=== PATIENT | female | born 1950 | race Caucasian/White ===

== ENCOUNTER 2019-06-02 12:28 | Outpatient (CLI) | payer MEDICARE, SELFPAY ==
[2019-06-02 13:48] LABS: Basophils # 0.1 10^3/uL (0.0-0.1); Basophils % 0.8 %; Eosinophils # 0.2 10^3/uL (0.0-0.8); Eosinophils % 2.6 %; Hematocrit 42.9 % (37.0-47.0); Hemoglobin 13.8 g/dL (11.5-15.3); Lymphocytes # 1.1 10^3/uL (0.8-4.8); Lymphocytes % 17.1 %; Mean Corpuscular HGB Conc 32.2 g/dL (30.0-36.0); Mean Corpuscular Hemoglobin 28.9 pg (28.0-34.0); Mean Corpuscular Volume 89.9 fL (81-99); Mean Platelet Volume 11.1 fL (7.4-10.4); Monocytes # 0.6 10^3/uL (0.2-0.9); Monocytes % 8.4 %; Neutrophils # 4.7 10^3/uL (1.8-7.7); Neutrophils % 70.6 %; Nucleated Red Blood Cells % 0 %; Platelet Count 345 10^3/cmm (130-400); Red Blood Count 4.77 10^6/uL (4.1-5.3); Red Cell Distribution Width 13.8 % (12.1-15.1); White Blood Count 6.7 10^3/uL (4.0-10.0)
[2019-06-02 14:05] LABS: Alanine Aminotransferase 18 U/L (0-33); Albumin Level 3.8 g/dL (3.5-5.2); Alkaline Phosphatase 98 IU/L (35-105); Anion Gap 14.7 (5-19); Aspartate Amino Transferase 22 U/L (0-32); Blood Urea Nitrogen 14 mg/dL (8-23); Calcium 9.7 mg/Dl (8.8-10.2); Carbon Dioxide 25 mmol/L (22-29); Chloride 101 mmol/L (98-107); Globulin 3.3 g/dL (1.3-4.6); Glomerular Filtration Rate 82.7 mL/min (90-130); Glucose 111 mg/dL (74-106); Potassium 3.7 mmol/L (3.5-5.1); Sodium 137 mmol/L (136-145); Total Bilirubin 0.3 mg/dL (0.15-1.2); Total Protein 7.1 g/dL (6.6-8.7)
[2019-06-02] MEDS: denosumab 60 mg SDV SUBCUT (14:30)
--- NOTE | 2019-06-06 21:01 | ONC FU_ITS ---
Dr. Caro Patient Follow-Up Note Patient: Jazmin Epperson Unit #: [id number]: 1950 Dicatated By: Itz Caro M.D.Date of Visit:Jun 02, 2019 Onc Med Follow-up/Prog Note Chief Complaint: Breast cancer. History of Present Illness: This is a 68 year-old woman with grade I infiltrating ductal carcinoma of the right breast, stage IA (T1c, N0, M0), ER/WI positive and HER-2/aranza negative. She had palpated a right breast nodule about 4 years ago, with mammogram at that time being benign. Follow up mammogram and ultrasound on 10/19/2014 showed spiculated 1.6 cm mass in the right breast, located at 10:00 position approximately 4 cm from the nipple on the ultrasound. There was also a subcentimeter mass in the left breast at 12:00 position suggestive of complex cyst on ultrasound. Ultrasound-guided biopsy on 11/05/2014 of the right breast lesion was nondiagnostic. On 11/23/2014 she was taken to OR for right breast lumpectomy and right axillary sentinel lymph node biopsy by Dr. Talbert. Her surgical pathology showed a 1.7 cm infiltrating ductal carcinoma, grade 1, negative final margins. Lymphovascular invasion was identified. One sentinel lymph node biopsy was negative for metastatic disease. Prognostic profile was in ER 92%, WI 93%, HER-2 by FISH 1.1, by IHC 1+. The patient was first seen by Dr. Mar on 12/07/2014. Oncotype DX score returned at 7, corresponding to 5% risk of distant recurrence in the next 10 years after completion of adjuvant hormonal treatment. She completed adjuvant radiation to the right breast on 02/19/2015 to a total dose of 5856 cGy. She began adjuvant hormonal therapy with anastrozole in November 2014. DEXA scan on 12/11/2014 showed osteoporosis, T score -2.5 in proximal femur. She also was found to have Vitamin D insufficiency. INTERIM HISTORY: On 11/03/2015 she sustained a right wrist fracture after falling while attempting to get out of the bathtub. She did not require surgery. I had seen in her for a followup vist in December 2015. She was otherwise not having any joint or bone pain, but she was complaining of significant fatigue. She had stopped taking Fosamax because she was having difficulty swallowing. At that time I did have her start Prolia for the osteoporosis, and she continued adjuvant hormonal therapy with anastrozole. Subsequent to that visit she developed a skin eruption on the lower extremities. A skin biopsy in May 2016 showed lichenoid tissue reaction with eosinophils, consistent with lichenoid drug eruption. Ultimately it was felt to be due to the anastrozole, and it did improve when she stopped the medication. She then started further adjuvant hormonal therapy with exemestane 25 mg daily in October 2016. She also continued Prolia injections for osteoporosis. Repeat DEXA scan on 11/26/2017 still showed evidence of osteoporosis with T score -1.2 in the lumbar spine, -2.5 in the left hip, and -2.1 in the right hip. I had seen her for a follow-up visit on 05/20/2018. She continued exemestane 25 mg daily, and she continued Prolia for bone health. She is seen for a follow-up visit. She has not been feeling very good generally. She says her energy is not real good, but she is still doing light work. Her ECOG score is 1. Her appetite also has not been good, and her weight is down about 10 pounds. She has not had fever, night sweats, or hot flashes. She says she is just getting over a cold. She has mild exertional dyspnea. She has had cough, but it is getting better. She does not complain of chest pain. She has a little bit of acid reflux. She has no other GI or complaints. She has had some pain in her left index finger. She has no other joint or bone pain. She has no focal neurologic symptoms. Medications: Cholecalciferol 1 Tablet (of 1000 Units) Oral daily, Exemestane 1 (25 mg) Tablet Oral daily, Synthroid 1 (50 mcg) Tablet Oral daily, Triamcinolone Acetonide Cream Topical PRN Allergies: Codeine Sulfate, doxycycline , eggs, and Penicillin. Review of Systems: Constitutional - Her energy is low. She is able to do light work at home. Her appetite is low and her weight is down almost 10 pounds. No fever, chills, hot flashes, or night sweats. ECOG score is 1, ENMT - She is getting over a cold and sore throat. No mouth sores. No sore throat or difficulty swallowing, Hematologic/Lymphatic - No abnormal bruising or bleeding, Respiratory - No shortness of breath. No cough. No pleuritic pain or hemoptysis, Cardiovascular - No angina pain. No palpitations, Gastrointestinal - No nausea or vomiting. She has occasional heartburn. No diarrhea or constipation. No blood in the stool or black stools, Genitourinary (F) - No dysuria or hematuria. No urinary frequency. No urgency or incontinence, Musculoskeletal - She has pain in her left index finger, Integumentary - No skin complications, Neurologic - She has occasional headaches. No dizziness. No numbness/paresthesias or other focal neurologic symptoms, Psychiatric - No anxiety or depression. No insomnia. Vital Signs: Performed on Jun 02, 2019 13:24 Height - 63.50 in Weight - 150.4 lbs (LOW) BSA - 1.72 sq.m BMI - 26.22 Temperature - 98.4 F Pulse - 82 /min Respiration - 22 /min BP - 148/84 mm(hg) (HIGH) O2 Sat - 97 % Pain - 0 Physical Examination: Constitutional - She looks good generally, Eyes - Sclerae nonicteric. Conjunctivae clear, ENMT - There are no lesions noted in the oral cavity, Hematologic/Lymphatic - No cervical or clavicular adenopathy, Respiratory - Lungs are clear with good air movement bilaterally, Cardiovascular - Heart rhythm is regular. There is no murmur, gallop, or rub noted, Breasts - There are no breast masses noted. There is no axillary adenopathy, Abdomen - Soft. Liver and spleen are not enlarged. There is no abdominal mass or ascites noted and there is no inguinal adenopathy, Extremities - No edema, Neurologic - No focal neurologic deficits noted. Lab/Imaging: Test performed on Jun 02, 2019 12:45 Glucose 111 mg/dL BUN 14 mg/dL Creatinine 0.7 mg/dL Cr Clearance (Est) 80.54 mL/min Sodium 137 mmol/L Potassium 3.7 mmol/L Chloride 101 mmol/L CO2 25 mmol/L Calcium 9.7 mg/dL Protein, Total 7.1 g/dL Albumin 3.8 g/dL Globulin 3.3 g/dL Bilirubin, Total 0.3 mg/dL Alkaline Phosphatase 98 IU/L AST (SGOT) 22 IU/L ALT (SGPT) 18 IU/L WBC 6.7 10^9/L RBC 4.77 10^12/L HGB 13.8 g/dL HCT 42.9 % MCV 89.9 fl MCH 28.9 pg MCHC 32.2 g/dL RDW 13.8 % Platelet Count 345 10^9/L MPV 11.1 fL Neutrophils (Gran) 4.7 10^9/L Lymphocytes 1.1 10^9/L Monocytes 0.6 10^9/L Eosinophils 0.2 10^9/L Basophils 0.1 10^9/L Manual Lymphocytes 17.1 % Manual Monocytes 8.4 % Manual Eosinophils 2.6 % Manual Basophils 0.8 % NRBCs 0.0 /100 WBC Impression: 1. Patient with grade I infiltrating ductal carcinoma of the right breast, stage IA (T1c, N0, M0), ER/WI positive, HER-2 negative. She was low risk by Oncotype DX, recurrence score 7. As such, adjuvant chemotherapy was not recommended. 2. She underwent right breast lumpectomy and sentinel lymph node biopsy on 11/23/2014. She completed adjuvant radiation to the right breast on 02/19/2015 to a total dose of 5856 cGy. 3. She started adjuvant hormonal therapy with anastrozole in November 2014. 4. She had evidence of osteoporosis on a baseline bone density study, T score -2.5 in the proximal femur. She also had evidence of vitamin D deficiency. In April 2016 she began treatment with Prolia for the osteoporosis. She had subsequently developed a skin eruption which was thought to most likely be due to the anastrozole, and she did then stop treatment. Her skin eruption did show gradual improvement. In October 2016 she began further adjuvant hormonal therapy with exemestane 25 mg daily. She has continued Prolia injections for the osteoporosis. Her repeat DEXA scan on 11/26/2017 still showed evidence of osteoporosis with T score -2.5 in the left hip and -2.1 in the right hip. During subsequent follow-up she continued to have a few skin lesions on her legs. I had suspected an inflammatory rather than an allergic process. She also had some fatigue. The skin eruption eventually did resolve, but she has continued to have fatigue, and she also now has had some weight loss. It is uncertain to what extent the symptoms may be related to the exemestane. There has been no evidence, though, of recurrence of the breast cancer. Plan: She continues treatment with exemestane 25 mg daily for one more year, which will complete a total of 5 years of adjuvant hormonal therapy. She will be given Prolia 60 mg by subcutaneous injection for the osteoporosis. She will continue vitamin D supplement daily. She will be scheduled for a follow-up visit in 6 months. Signed By: Itz Caro M.D. <<Signature on File>>
== END 2019-06-02 12:29 | disposition home or self-care (01) ==
PROVIDERS: Family Provider Family Medicine; Visit Provider Internal Medicine Medical Oncology
DX: M81.0 Age-related osteoporosis without current pathological fracture (principal); C50.111 Malignant neoplasm of central portion of right female breast; E55.9 Vitamin D deficiency, unspecified; Z79.811 Long term (current) use of aromatase inhibitors; Z92.3 Personal history of irradiation
CPT/HCPCS: 80053; 85025; 96372; 99214; J0897

== ENCOUNTER 2019-06-10 10:10 | Outpatient (CLI) | payer MEDICARE, SELFPAY ==
--- NOTE | 2019-06-10 10:33 | MM_ITS ---
WS: [id number] BILATERAL DIGITAL DIAGNOSTIC MAMMOGRAM MAMMOGRAPHY WITH CAD CLINICAL INFORMATION: HX OF BREAST CA HISTORY: COMPARISON: None. TECHNIQUE: Bilateral CC, MLO, and ML views. FINDINGS: Scattered fibroglandular densities bilaterally. Lucent centered calcifications are stable. Right uppe r outer quadrant parenchymal scarring from prior surgery. No suspicious focal mass, asymmetry, calcifications, or architectural distortion. No evidence of jackie gnancy. MM/[place] [id number] IMPRESSION: BI-RADS: 2-Benign FOLLOW UP: 1 Year Follow-up Recommend return to annual diagnostic mammography.
== END 2019-06-10 10:11 | disposition home or self-care (01) ==
LOC: ONCMED 10:30
PROVIDERS: Family Provider Family Medicine; Visit Provider Internal Medicine Medical Oncology
DX: Z85.3 Personal history of malignant neoplasm of breast (principal)
CPT/HCPCS: 77066

== ENCOUNTER 2019-12-01 11:20 | Outpatient (CLI) | payer MEDICARE, SELFPAY ==
[2019-12-01 11:47] LABS: Basophils % 0.5 %; Eosinophils # 0.2 10^3/uL (0.0-0.8); Eosinophils % 3.6 %; Hematocrit 44.1 % (37.0-47.0); Hemoglobin 14.1 g/dL (11.5-15.3); Lymphocytes # 1.2 10^3/uL (0.8-4.8); Lymphocytes % 18.2 %; Mean Corpuscular Hemoglobin 29.3 pg (28.0-34.0); Mean Corpuscular Volume 91.5 fL (81-99); Mean Platelet Volume 10.7 fL (7.4-10.4); Monocytes # 0.6 10^3/uL (0.2-0.9); Monocytes % 8.8 %; Neutrophils # 4.34 10^3/uL (1.8-7.7); Neutrophils % 68.3 %; Nucleated Red Blood Cells % 0 %; Platelet Count 285 10^3/cmm (130-400); Red Blood Count 4.82 10^6/uL (4.1-5.3); Red Cell Distribution Width 14.6 % (12.1-15.1); White Blood Count 6.4 10^3/uL (4.0-10.0)
[2019-12-01 12:06] LABS: Alanine Aminotransferase 13 U/L (0-33); Albumin Level 4.2 g/dL (3.5-5.2); Alkaline Phosphatase 83 IU/L (35-105); Anion Gap 15.1 (5-19); Aspartate Amino Transferase 27 U/L (0-32); Blood Urea Nitrogen 15 mg/dL (8-23); Calcium 8.8 mg/dL (8.5-10.5); Carbon Dioxide 23 mmol/L (22-29); Chloride 105 mmol/L (98-107); Globulin 2.9 g/dL (1.3-4.6); Glucose 107 mg/dL (65-115); Osmolality Calculated 285 mOsm/kg (285-295); Potassium 4.1 mmol/L (3.5-5.1); Sodium 139 mmol/L (136-145); Total Bilirubin 0.5 mg/dL (0.15-1.2); Total Protein 7.1 g/dL (6.6-8.7)
[2019-12-01] MEDS: denosumab 60 mg SDV SUBCUT (13:44)
--- NOTE | 2019-12-01 19:36 | ONC FU_ITS ---
Dr. Caro Patient Follow-Up Note Patient: Jazmin Epperson Unit #: [id number]: 1950 Dicatated By: Itz Caro M.D.Date of Visit:Dec 01, 2019 Onc Med Follow-up/Prog Note Chief Complaint: Breast cancer. History of Present Illness: This is a 69 year-old woman with grade I infiltrating ductal carcinoma of the right breast, stage IA (T1c, N0, M0), ER/MT positive and HER-2/aranza negative. She had palpated a right breast nodule about 4 years ago, with mammogram at that time being benign. Follow up mammogram and ultrasound on 10/19/2014 showed spiculated 1.6 cm mass in the right breast, located at 10:00 position approximately 4 cm from the nipple on the ultrasound. There was also a subcentimeter mass in the left breast at 12:00 position suggestive of complex cyst on ultrasound. Ultrasound-guided biopsy on 11/05/2014 of the right breast lesion was nondiagnostic. On 11/23/2014 she was taken to OR for right breast lumpectomy and right axillary sentinel lymph node biopsy by Dr. Talbert. Her surgical pathology showed a 1.7 cm infiltrating ductal carcinoma, grade 1, negative final margins. Lymphovascular invasion was identified. One sentinel lymph node biopsy was negative for metastatic disease. Prognostic profile was in ER 92%, MT 93%, HER-2 by FISH 1.1, by IHC 1+. The patient was first seen by Dr. Mar on 12/07/2014. Oncotype DX score returned at 7, corresponding to 5% risk of distant recurrence in the next 10 years after completion of adjuvant hormonal treatment. She completed adjuvant radiation to the right breast on 02/19/2015 to a total dose of 5856 cGy. She began adjuvant hormonal therapy with anastrozole in November 2014. DEXA scan on 12/11/2014 showed osteoporosis, T score -2.5 in proximal femur. She also was found to have Vitamin D insufficiency. INTERIM HISTORY: On 11/03/2015 she sustained a right wrist fracture after falling while attempting to get out of the bathtub. She did not require surgery. I had seen in her for a followup vist in December 2015. She was otherwise not having any joint or bone pain, but she was complaining of significant fatigue. She had stopped taking Fosamax because she was having difficulty swallowing. At that time I did have her start Prolia for the osteoporosis, and she continued adjuvant hormonal therapy with anastrozole. Subsequent to that visit she developed a skin eruption on the lower extremities. A skin biopsy in May 2016 showed lichenoid tissue reaction with eosinophils, consistent with lichenoid drug eruption. Ultimately it was felt to be due to the anastrozole, and it did improve when she stopped the medication. She then started further adjuvant hormonal therapy with exemestane 25 mg daily in October 2016. She also continued Prolia injections for osteoporosis. Repeat DEXA scan on 11/26/2017 still showed evidence of osteoporosis with T score -1.2 in the lumbar spine, -2.5 in the left hip, and -2.1 in the right hip. I had seen her for a follow-up visit on 05/20/2018. She continued exemestane 25 mg daily, and she continued Prolia for bone health. She is seen for a follow-up visit. She has been feeling good generally. She says her energy could be better, but she has normal activity. ECOG score is 0. Her appetite is good. She does not have fever or night sweats. She has occasional hot flashes. She has no shortness of breath, cough, or chest pain. She has no GI/ complaints other than a little bit of acid reflux. She has pain for a few days in the groin area on both sides after her Prolia injections. She has no other joint or bone pain. She reports having occasional headache. She has no focal neurologic symptoms. Medications: Cholecalciferol 1 Tablet (of 1000 Units) Oral daily, Exemestane 1 (25 mg) Tablet Oral daily, Synthroid 1 (50 mcg) Tablet Oral daily, Triamcinolone Acetonide Cream Topical PRN Allergies: Codeine Sulfate, doxycycline , eggs, and Penicillin. Review of Systems: Constitutional - She is feeling good. Her energy is good and she has normal activity without restrictions. Her appetite is good and her weight is down about 9 pounds from last years visit. No fever, night sweats, or hot flashes. ECOG score is 0, ENMT - No sinus congestion/drainage. No mouth sores. No sore throat or difficulty swallowing, Hematologic/Lymphatic - No abnormal bruising or bleeding, Respiratory - No shortness of breath. No cough. No pleuritic pain or hemoptysis, Cardiovascular - No angina pain. No palpitations, Gastrointestinal - No nausea or vomiting. She has occasional heartburn. No diarrhea or constipation. No blood in the stool or black stools, Genitourinary (F) - No dysuria or hematuria. No urinary frequency. No urgency or incontinence, Musculoskeletal - No joint or bone pain, Integumentary - No skin complications, Neurologic - She has occasional headaches. No dizziness. No numbness or tingling. No other focal neurologic symptoms, Psychiatric - No anxiety or depression. No insomnia. Vital Signs: Blood pressure 127/72, pulse 73, respirations 18, temp 97.9 degrees, oxygen saturation 100%. Her weight is 148 pounds. Physical Examination: Constitutional - She looks good generally, Eyes - Sclerae nonicteric. Conjunctivae clear, ENMT - No lesions noted in the oral cavity, Hematologic/Lymphatic - No cervical, clavicular, or axillary adenopathy, Respiratory - Lungs are clear with good air movement bilaterally, Cardiovascular - Heart rhythm is regular. There is no murmur, gallop, or rub noted, Abdomen - Soft. Liver and spleen are not enlarged. There is no abdominal mass or ascites noted and there is no inguinal adenopathy, Extremities - No edema, Neurologic - No focal neurologic deficits noted. Lab/Imaging: Test performed on Dec 01, 2019 11:27 Sodium 139 mmol/L Potassium 4.1 mmol/L Chloride 105 mmol/L CO2 23 mmol/L Anion Gap 15.1 BUN 15 mg/dL Creatinine 0.8 mg/dL Cr Clearance (Est) 69.4700 mL/min Glucose 107 mg/dL Calcium 8.8 mg/dL Protein, Total 7.1 g/dL Albumin 4.2 g/dL Globulin 2.9 g/dL Bilirubin, Total 0.5 mg/dL ALT (SGPT) 13 U/L AST (SGOT) 27 U/L Alkaline Phosphatase 83 IU/L WBC 6.4 10 3/uL RBC 4.82 10 6/uL HGB 14.1 g/dL HCT 44.1 % MCV 91.5 fL MCH 29.3 pg MCHC 32.0 g/dL RDW 14.6 % Platelet Count 285 10 3/cmm MPV 10.7 fL Neutrophils 4.34 10 3/uL Lymphocytes 1.2 10 3/uL Monocytes 0.6 10 3/uL Eosinophils 0.2 10 3/uL Basophils 0.0 10 3/uL Neutrophil % 68.3 % Lymphocyte % 18.2 % Monocyte % 8.8 % Eosinophil % 3.6 % Basophils % 0.5 % NRBC % 0 % Impression: 1. Patient with grade I infiltrating ductal carcinoma of the right breast, stage IA (T1c, N0, M0), ER/MT positive, HER-2 negative. She was low risk by Oncotype DX, recurrence score 7. As such, adjuvant chemotherapy was not recommended. 2. She underwent right breast lumpectomy and sentinel lymph node biopsy on 11/23/2014. She completed adjuvant radiation to the right breast on 02/19/2015 to a total dose of 5856 cGy. 3. She started adjuvant hormonal therapy with anastrozole in November 2014. 4. She had evidence of osteoporosis on a baseline bone density study, T score -2.5 in the proximal femur. She also had evidence of vitamin D deficiency. In April 2016 she began treatment with Prolia for the osteoporosis. She had subsequently developed a skin eruption which was thought to most likely be due to the anastrozole, and she did then stop treatment. Her skin eruption did show gradual improvement. In October 2016 she began further adjuvant hormonal therapy with exemestane 25 mg daily. She has continued Prolia injections for the osteoporosis. Her repeat DEXA scan on 11/26/2017 still showed evidence of osteoporosis with T score -2.5 in the left hip and -2.1 in the right hip. During subsequent follow-up she continued to have a few skin lesions on her legs. I had suspected an inflammatory rather than an allergic process. She also had some fatigue. The skin eruption eventually did resolve, but she continued to have fatigue, and she then had weight loss. At this point her clinical status appears stable, but it remains uncertain as to what extent her symptoms may be related to the exemestane. There has been no evidence, though, of recurrence of the breast cancer. Plan: She continues treatment with exemestane 25 mg daily for another 6 months, at which time she will have completed a total of 5 years of adjuvant hormonal therapy. She will be given Prolia 60 mg by subcutaneous injection for the osteoporosis. She will continue vitamin D supplement daily. She will be scheduled for a follow-up visit in 6 months. She will have a repeat DEXA scan with that visit. Signed By: Itz Caro M.D. <<Signature on File>>
== END 2019-12-01 11:21 | disposition home or self-care (01) ==
LOC: ONCMED 11:22
PROVIDERS: Visit Provider Internal Medicine Medical Oncology
DX: C50.411 Malignant neoplasm of upper-outer quadrant of right female breast (principal); M81.0 Age-related osteoporosis without current pathological fracture; R53.83 Other fatigue; R63.4 Abnormal weight loss; Z79.811 Long term (current) use of aromatase inhibitors; Z17.0 Estrogen receptor positive status [ER+]; Z92.3 Personal history of irradiation
CPT/HCPCS: 80053; 85025; 96372; 99214; J0897

== ENCOUNTER 2020-01-09 10:51 | Emergency (ER) | payer MEDICARE, SELFPAY ==
[2020-01-09] VITALS (11 sets, daily range): BP systolic 104–131; BP diastolic 71–94; PULSE 97–108; RESP 18–24; O2SAT 94–98
--- NOTE | 2020-01-09 10:53 | CT_ITS ---
WS: [id number] CT ABDOMEN PELVIS TECHNIQUE: Contrast-enhanced CT of the abdomen and pelvis with coronal and sagittal reformatted image s. CLINICAL INFORMATION: abd pain COMPARISON: None. DLP: 926.[address] scans at [facility] use at least one of these dose optimization techniques: automat ed exposure control; mA and/or kV adjustment per patient size (includes targeted exams where dose is matched to clinical indication); or iterative reconstruction. FINDINGS: Diffuse fatty infiltration the liver. Normal portal vein and proximal splenic vein. Lobulated spleen similar to prior radiation therapy planning CT 24,015. Large amount of acute surrounding hematoma ab out the spleen with medial displacement. Left kidney is displaced inferiorly. Blood products extend a long the greater curvature stomach and proximal duodenum. Blood products likely due to recent fall. N o displaced rib fractures. Suggestion of minimal irregularity of the adjacent 10th rib suspicious for nondisplaced fracture. No underlying emphysema. Left lung is well aerated. Moderate amount of fluid in the pelvis is mainly low-attenuation likely due to fluid rather than acut e blood products. Tiny amount of fluid about the right hepatic lobe. Additional small amount of perih epatic fluid along the hepatic flexure. Tiny amount of pneumatosis or free air adjacent to the right hepatic flexure likely due to recent biopsy. Otherwise no free intraperitoneal air. Small amount of f luid in the right pericolic gutter. Lung bases are well aerated. Normal GE junction. Adrenal glands are normal. Normal renal parenchymal enhancement. A few small renal cysts. No hydronephrosis. Fatty atrophy of the pancreas. CT/CT abdomen pelvis w con* [id number] IMPRESSION: 1. Increased attenuation blood products about the spleen consistent with acute hematoma. Associated displacement of the spleen with chronic splenic deformity described above. Suggestion of slight irregularity at the adjacent 10th rib ma y be due to a tiny nondisplaced fracture from recent fall. No displaced fractur es or subcutaneous air. 2. Air distended loops of colon at the hepatic flexure with a small amount of fluid and a trace amount of pneumatosis with a few small locules of bowel wall or adjacent intraperitoneal air. This is likely at the biopsy site. Otherwise n o evidence of free air. 3. Small amount of low-attenuation fluid in the hepatic flexure, right pericol ic gutte, and moderate ascites in the pelvis which appears low attenuation. 4. Left kidney is inferiorly displaced by the splenic hematoma. 5. Lung bases are well aerated. 6. Normal caliber abdominal aorta. Notified Henrique Case DO at 01/09/2020 12:04 PM.
--- NOTE | 2020-01-09 10:53 | ECG_ITS ---
[facility] Test Date: 2020-01-09 Pat Name: Jazmin Epperson Department: Room: Gender: Female Wellness [employer]: : 1950 Requested By: Henrique Fowler Order Number: [id number] Magaly MD: Shu Rocha M.D. Measurements Intervals [place] Rate: 97 P: 37 TN: 160 QRS: -6 QRSD: 77 T: 44 QT: 352 QTc: 448 Interpretive Statements SINUS RHYTHM POSSIBLE RIGHT VENTRICULAR CONDUCTION DELAY [RSR (QR) IN V1/V2] No previous ECG available for comparison Electronically Signed On 01-09-2020 11:31:56 CDT by Shu Rocha M.D. [id number]
--- NOTE | 2020-01-09 10:58 | ED_ITS ---
HPI - Abdominal Pain General: Chief Complaint: Abdominal Pain Stated Complaint: WEAKNESS/ LOW BP/ RECTAL BLEEDING Time Seen by Provider: 01/09/20 10:53 History of Present Illness: HPI narrative: 69-year-old female brought in by EMS. She had a colonoscopy yesterday prior to arrival Dr. Curry and called me alerting me to her history and that she would be coming in. She had a colonoscopy yesterday and they removed a fairly good sized cecal polyp. because of its size and position Dr. Curry is concerned about a possible perforation. Patient reports that last night she began having abdominal pain she did have a bowel movement last night but has had none since then she has had a little bright red blood per rectum but not a large amount. She denies dysuria urgency frequency no hematemesis although she does have quite a bit of nausea. She denies any recent respiratory symptoms or fever. Since the abdominal pain began it she has a difficult time taking a deep breath due to pain but she is not had any respiratory issues prior to that. MD elicited complaint: abdominal pain Pertinent past history: other (Colonoscopy with cecal polypectomy yesterday) Onset (ago): hour(s) Pain Consistency: constant Location: Diffuse Severity: severe Quality: cramping Radiation: none Migration to: no migration Exacerbating factors: movement Relieving factors: medication and rest Context: other (Colonoscopy with removal of cecal polyp) Associated Symptoms: Reports GI cramping, hematochezia, nausea, poor appetite, syncope and vomiting; Denies change in stool character, coffee ground emesis, constipation, diarrhea, dyspepsia, dysuria, excessive flatus, fever(s), heartburn, hematuria, hematemesis, fecal incontinence, loose stools and melena Review of Systems Const: Denies: fever(s) ENMT: Denies: throat pain, ear or mastoid pain, nasal discharge or nasal congestion Card: Reports: syncope Resp: Denies: dyspnea, productive cough or non-productive cough GI: Reports: nausea, vomiting, GI cramping and hematochezia; Denies: hematemesis, coffee ground emesis, heartburn, diarrhea, constipation, excessive flatus, fecal incontinence, change in stool character or melena : Denies: dysuria or hematuria Skin/Breast: Denies: rash or pruritus Physical Exam Const: COMMON NORMALS: no acute distress GENERAL APPEARANCE: cooperative and comfortable ORIENTATION/CONSCIOUSNESS: Yes awake, Yes oriented to person, Yes oriented to place and Yes oriented to time HENMT: COMMON NORMALS: normocephalic, atraumatic and hearing grossly normal bilaterally HEAD & SCALP: normocephalic and atraumatic Eye: COMMON NORMALS: Equal, round and reactive pupils present, EOMs intact bilaterally, conjunctivae normal and no scleral icterus CONJUNCTIVA: Yes conjunctivae normal PUPIL: Yes Equal, round and reactive pupils present Neck/C-Spine: COMMON NORMALS: full ROM, no lymphadenopathy, supple and no JVD Lymph: LYMPHATIC: no lymphadenopathy noted and no lymphedema noted Resp: COMMON NORMALS: normal respiratory effort, No retractions, No use of accessory muscles and clear to auscultation bilaterally AUSCULTATION: clear to auscultation bilaterally Cardio: COMMON NORMALS: no JVD, regular rate, regular rhythm and No murmurs present (Cardio) RATE: regular rate RHYTHM: regular rhythm GI: COMMON NORMALS: No hepatosplenomegaly present AUSCULTATION: Yes Absent bowel sounds PALPATION: Yes Tenderness to palpation present (GI), Yes Guarding due to palpation present (GI) and Yes No hepatosplenomegaly present Extremity: COMMON NORMALS: normal to inspection, capillary refill normal, no clubbing, cyanosis or edema, no calf tenderness and no pedal edema Neuro: SENSORIUM/ORIENTATION: Yes oriented to person, Yes oriented to place and Yes oriented to time Skin: COMMON NORMALS: no rashes or lesions noted GENERAL SKIN EXAM: no rashes or lesions noted Course Vital Signs: Vital signs: Vital Signs Pulse Rate 108 H 01/09/20 15:24 Respiratory Rate 18 01/09/20 15:24 Blood Pressure 116/71 01/09/20 15:24 Pulse Oximetry 97 01/09/20 15:24 MDM - Abdominal Pain MDM Narrative: Medical decision making narrative: CT shows ruptured spleen with intra-abdominal bleeding. Hemoglobin dropped 3 points while she was in the ER as well as her blood pressure decreasing from 130 on presentation to around 100 patient was becoming increasingly symptomatic as well 1 unit of blood hung to transfuse while in route. Transfer to [facility] for interventional radiology to embolize potentially to lindsay bleeding. Discussed with Dr. Calix he had recommended transfer for for interventional radiology. Discussed with family they are in agreement and patient they are in agreement. Lab Data: Labs: Lab Results 01/09/20 01/09/20 01/09/20 Range/Units 10:40 10:40 10:55 WBC 26.2 H (4.0-10.0) 10^3/ uL RBC 4.68 (4.1-5.3) 10^6/u L Hgb 13.7 (11.5-15.3) g/dL Hct 43.9 (37.0-47.0) % MCV 93.8 (81-99) fL MCH 29.3 (28.0-34.0) pg MCHC 31.2 (30.0-36.0) g/dL RDW 14.3 (12.1-15.1) % Plt Count 356 (130-400) 10^3/c mm MPV 11.2 H (7.4-10.4) fL Neut % (Auto) 88.5 % Lymph % (Auto) 4.2 % [place] % (Auto) 5.3 % Eos % (Auto) 0.0 % Baso % (Auto) 0.3 % Neut # (Auto) 23.20 H (1.8-7.7) 10^3/u L Lymph # (Auto) 1.1 (0.8-4.8) 10^3/u L [place] # (Auto) 1.4 H (0.2-0.9) 10^3/u L Eos # (Auto) 0.0 (0.0-0.8) 10^3/u L Baso # (Auto) 0.1 (0.0-0.1) 10^3/u L Nucleated RBC % (a uto) 0 % Nucleated RBCs # 0.0 /100WBC Sodium 136 (136-145) mmol/L Potassium 4.6 (3.5-5.1) mmol/L Chloride 103 (98-107) mmol/L Carbon Dioxide 12 L (22-29) mmol/L Anion Gap 25.6 H (5-19) BUN 28 H (8-23) mg/dL Creatinine 2.0 H (0.5-0.9) mg/dL GFR Calculation Not Reportable Glucose 327 H (65-115) mg/dL Calculated Osmolal ity 292 (285-295) mOsm/k g Lactic Acid 8.9 H* (0.5-2.2) mmol/L Lactic Acid (Sepsi s) (0.5-2.2) mmol/L Calcium 9.9 (8.5-10.5) mg/dL Total Bilirubin 0.5 (0.15-1.2) mg/dL AST 22 (0-32) U/L ALT 22 (0-33) U/L Alkaline Phosphata se 73 (35-105) IU/L Total Protein 7.8 (6.6-8.7) g/dL Albumin 4.4 (3.5-5.2) g/dL Globulin 3.4 (1.3-4.6) g/dL Lipase 23 (13-60) U/L Urine Color (Yellow) Urine Appearance (CLEAR) Urine pH (5-7) Ur Specific Gravit y (1.005-1.030) Urine Protein (Negative) Urine Glucose (UA) (Normal) Urine Ketones (Negative) Urine Blood (Negative) Urine Nitrate (Negative) Urine Bilirubin (NEGATIVE) Urine Urobilinogen (Negative) mg/dL Ur Leukocyte Donna ase (Negative) Urine RBC (0-2) /hpf Urine WBC (0-5) /hpf Ur Squamous Epith Cells (0-5) Calcium Oxalate Cr ystal /hpf Amorphous Sediment Urine Bacteria (NONE) Urine Mucus Blood Type Rho(D) Type Antibody Screen Crossmatch 01/09/20 01/09/20 01/09/20 Range/Units 11:42 12:35 12:51 WBC (4.0-10.0) 10^3/ uL RBC (4.1-5.3) 10^6/u L Hgb 10.7 L (11.5-15.3) g/dL Hct (37.0-47.0) % MCV (81-99) fL MCH (28.0-34.0) pg MCHC (30.0-36.0) g/dL RDW (12.1-15.1) % Plt Count (130-400) 10^3/c mm MPV (7.4-10.4) fL Neut % (Auto) % Lymph % (Auto) % [place] % (Auto) % Eos % (Auto) % Baso % (Auto) % Neut # (Auto) (1.8-7.7) 10^3/u L Lymph # (Auto) (0.8-4.8) 10^3/u L [place] # (Auto) (0.2-0.9) 10^3/u L Eos # (Auto) (0.0-0.8) 10^3/u L Baso # (Auto) (0.0-0.1) 10^3/u L Nucleated RBC % (a uto) % Nucleated RBCs # /100WBC Sodium (136-145) mmol/L Potassium (3.5-5.1) mmol/L Chloride (98-107) mmol/L Carbon Dioxide (22-29) mmol/L Anion Gap (5-19) BUN (8-23) mg/dL Creatinine (0.5-0.9) mg/dL GFR Calculation Glucose (65-115) mg/dL Calculated Osmolal ity (285-295) mOsm/k g Lactic Acid (0.5-2.2) mmol/L Lactic Acid (Sepsi s) (0.5-2.2) mmol/L Calcium (8.5-10.5) mg/dL Total Bilirubin (0.15-1.2) mg/dL AST (0-32) U/L ALT (0-33) U/L Alkaline Phosphata se (35-105) IU/L Total Protein (6.6-8.7) g/dL Albumin (3.5-5.2) g/dL Globulin (1.3-4.6) g/dL Lipase (13-60) U/L Urine Color Yellow (Yellow) Urine Appearance Clear (CLEAR) Urine pH 5.0 (5-7) Ur Specific Gravit y 1.005 (1.005-1.030) Urine Protein Trace (Negative) Urine Glucose (UA) 2+ (Normal) Urine Ketones Negative (Negative) Urine Blood Neg (Negative) Urine Nitrate Negative (Negative) Urine Bilirubin Neg (NEGATIVE) Urine Urobilinogen Norm (Negative) mg/dL Ur Leukocyte Donna ase Negative (Negative) Urine RBC None (0-2) /hpf Urine WBC None (0-5) /hpf Ur Squamous Epith Cells 10-15 H (0-5) Calcium Oxalate Cr ystal 0-4 H /hpf Amorphous Sediment Not Reportable Urine Bacteria 1+ H (NONE) Urine Mucus 1+ Blood Type O Positive Rho(D) Type Positive Antibody Screen Negative Crossmatch See Detail 01/09/20 01/09/20 Range/Units 13:49 14:34 WBC (4.0-10.0) 10^3/ uL RBC (4.1-5.3) 10^6/u L Hgb Cancelled (11.5-15.3) g/dL Hct (37.0-47.0) % MCV (81-99) fL MCH (28.0-34.0) pg MCHC (30.0-36.0) g/dL RDW (12.1-15.1) % Plt Count (130-400) 10^3/c mm MPV (7.4-10.4) fL Neut % (Auto) % Lymph % (Auto) % [place] % (Auto) % Eos % (Auto) % Baso % (Auto) % Neut # (Auto) (1.8-7.7) 10^3/u L Lymph # (Auto) (0.8-4.8) 10^3/u L [place] # (Auto) (0.2-0.9) 10^3/u L Eos # (Auto) (0.0-0.8) 10^3/u L Baso # (Auto) (0.0-0.1) 10^3/u L Nucleated RBC % (a uto) % Nucleated RBCs # /100WBC Sodium (136-145) mmol/L Potassium (3.5-5.1) mmol/L Chloride (98-107) mmol/L Carbon Dioxide (22-29) mmol/L Anion Gap (5-19) BUN (8-23) mg/dL Creatinine (0.5-0.9) mg/dL GFR Calculation Glucose (65-115) mg/dL Calculated Osmolal ity (285-295) mOsm/k g Lactic Acid (0.5-2.2) mmol/L Lactic Acid (Sepsi s) 6.3 H* (0.5-2.2) mmol/L Calcium (8.5-10.5) mg/dL Total Bilirubin (0.15-1.2) mg/dL AST (0-32) U/L ALT (0-33) U/L Alkaline Phosphata se (35-105) IU/L Total Protein (6.6-8.7) g/dL Albumin (3.5-5.2) g/dL Globulin (1.3-4.6) g/dL Lipase (13-60) U/L Urine Color (Yellow) Urine Appearance (CLEAR) Urine pH (5-7) Ur Specific Gravit y (1.005-1.030) Urine Protein (Negative) Urine Glucose (UA) (Normal) Urine Ketones (Negative) Urine Blood (Negative) Urine Nitrate (Negative) Urine Bilirubin (NEGATIVE) Urine Urobilinogen (Negative) mg/dL Ur Leukocyte Donna ase (Negative) Urine RBC (0-2) /hpf Urine WBC (0-5) /hpf Ur Squamous Epith Cells (0-5) Calcium Oxalate Cr ystal /hpf Amorphous Sediment Urine Bacteria (NONE) Urine Mucus Blood Type Rho(D) Type Antibody Screen Crossmatch Discharge Plan Discharge Patient Disposition: Xfer Other Discharge Date/Time: 01/09/20 15:38 Coding Level of Care Code ED Machinist Supervisor for Chg Fwd Exam Comprehensive
[2020-01-09] MEDS: sodium chloride 0.9% 1,000 ML 999 ML IV ×3 (11:00→13:38)
[2020-01-09 11:04] LABS: Basophils # 0.1 10^3/uL (0.0-0.1); Basophils % 0.3 %; Hematocrit 43.9 % (37.0-47.0); Hemoglobin 13.7 g/dL (11.5-15.3); Lymphocytes # 1.1 10^3/uL (0.8-4.8); Lymphocytes % 4.2 %; Mean Corpuscular HGB Conc 31.2 g/dL (30.0-36.0); Mean Corpuscular Hemoglobin 29.3 pg (28.0-34.0); Mean Corpuscular Volume 93.8 fL (81-99); Mean Platelet Volume 11.2 fL (7.4-10.4); Monocytes # 1.4 10^3/uL (0.2-0.9); Monocytes % 5.3 %; Neutrophils % 88.5 %; Nucleated Red Blood Cells % 0 %; Platelet Count 356 10^3/cmm (130-400); Red Blood Count 4.68 10^6/uL (4.1-5.3); Red Cell Distribution Width 14.3 % (12.1-15.1); White Blood Count 26.2 10^3/uL (4.0-10.0)
[2020-01-09] MEDS: iohexol 300 mg/mL 100 mL Btl IV (11:14)
[2020-01-09] MEDS: morphine 4 mg/mL SDV 1 mL 6 MG IVP (11:23)
[2020-01-09] MEDS: ondansetron 2 mg/ML SDV 2 mL 4 MG IVP (11:24)
[2020-01-09 11:33] LABS: Alanine Aminotransferase 22 U/L (0-33); Albumin Level 4.4 g/dL (3.5-5.2); Alkaline Phosphatase 73 IU/L (35-105); Anion Gap 25.6 (5-19); Aspartate Amino Transferase 22 U/L (0-32); Blood Urea Nitrogen 28 mg/dL (8-23); Calcium 9.9 mg/dL (8.5-10.5); Carbon Dioxide 12 mmol/L (22-29); Chloride 103 mmol/L (98-107); Globulin 3.4 g/dL (1.3-4.6); Glucose 327 mg/dL (65-115); Lipase 23 U/L (13-60); Osmolality Calculated 292 mOsm/kg (285-295); Potassium 4.6 mmol/L (3.5-5.1); Sodium 136 mmol/L (136-145); Total Bilirubin 0.5 mg/dL (0.15-1.2); Total Protein 7.8 g/dL (6.6-8.7)
[2020-01-09] MEDS: fentaNYL 50 mcg/mL INJ 2mL 25 MCG IVP ×2 (12:20→13:02)
[2020-01-09 12:33] LABS: Lactic Sepsis W/Reflex 8.9 mmol/L (0.5-2.2)
[2020-01-09] MEDS: metroNIDAZOLE IV 500 MG/100 ML PREMIX 100 MG IV (12:37)
[2020-01-09] MEDS: ciprofloxacin 400 MG/200 ML PREMIX 100 MG IV (12:37)
[2020-01-09 13:07] LABS: Hemoglobin 10.7 g/dL (11.5-15.3)
[2020-01-09 13:14] LABS: Reflex Lactate Order REFLEX LACTIC ORDERD
[2020-01-09 13:22] LABS: Add Urine Culture? No; Add Urine Microscopic? YES; Bacteria Urine 1+; Bilirubin Urine Neg (NEGATIVE); Blood Urine Neg (Negative); Calcium Oxalate Crystals Urine 0-4 /hpf; Glucose Urine UA 2+ (Normal); Ketones Urine Negative (Negative); Leukocyte Esterase Urine Negative (Negative); Mucus Urine 1+; Nitrate Urine Negative (Negative); Protein Urine Trace (Negative); Specific Gravity, Urine 1.005 (1.005-1.030); Urine Appearance Clear (CLEAR); Urine Color Yellow (Yellow); Urobilinogen Urine Norm (Negative)
[2020-01-09] MEDS: morphine 4 mg/mL SDV 1 mL IVP ×2 (13:39→15:09)
[2020-01-09 14:19] LABS: Lactic Acid level (Lactate) 6.3 mmol/L (0.5-2.2)
--- NOTE | 2020-01-09 15:27 | PC.NURSE ---
Report given at bedside to [employer] crew. Blood was ready and received at 1422, verified per TAR documentation, sent with IV NS & appropriate tubing with patient to be initiated in flight per [employer] crew. Patient in stable condition and in minimal pain.
== END 2020-01-09 15:38 | disposition other institution (70) ==
LOC: ER 11:15
PROVIDERS: Emergency Provider Family Medicine
DX: R10.9 Unspecified abdominal pain (principal)
CPT/HCPCS: 12345; 36415; 51702; 74177; 80053; 81001; 83605; 83690; 85018; 85025; 86850; 86900; 86920; 87040; 93005; 96360; 96361; 96365; 96366; 96367; 96375; 96376; 99284; 99285; J0744; J2270; J2405; J3010; J7030; P9016; Q9967; S0030

== ENCOUNTER 2020-06-15 07:45 | Outpatient (CLI) | payer MEDICARE, SELFPAY ==
--- NOTE | 2020-06-15 07:55 | MM_ITS ---
WS: [id number] BILATERAL DIGITAL DIAGNOSTIC MAMMOGRAM MAMMOGRAPHY WITH CAD CLINICAL INFORMATION: HX OF BREAST CA HISTORY: COMPARISON: June 10, 2019 TECHNIQUE: Bilateral CC, MLO, and ML views. FINDINGS: Scattered fibroglandular densities bilaterally. Punctate and lucent centered calcifications. Parenchy mal fibrosis right upper outer quadrant from prior lumpectomy. No suspicious focal mass, asymmetry, calcifications, or architectural distortion. No evidence of jackie gnancy. MM/[place] [id number] IMPRESSION: BI-RADS: 2-Benign FOLLOW UP: 1 Year Follow-up Recommend return to annual diagnostic mammography.
[2020-06-15 08:37] LABS: Basophils # 0.1 10^3/uL (0.0-0.1); Basophils % 0.8 %; Eosinophils # 0.4 10^3/uL (0.0-0.8); Eosinophils % 5.4 %; Hematocrit 42.8 % (37.0-47.0); Hemoglobin 13.8 g/dL (11.5-15.3); Lymphocytes # 1.3 10^3/uL (0.8-4.8); Lymphocytes % 17.3 %; Mean Corpuscular HGB Conc 32.2 g/dL (30.0-36.0); Mean Corpuscular Hemoglobin 28.2 pg (28.0-34.0); Mean Corpuscular Volume 87.3 fL (81-99); Mean Platelet Volume 10.7 fL (7.4-10.4); Monocytes # 0.8 10^3/uL (0.2-0.9); Monocytes % 10.3 %; Neutrophils % 65.9 %; Nucleated Red Blood Cells % 0 %; Platelet Count 354 10^3/cmm (130-400); White Blood Count 7.3 10^3/uL (4.0-10.0)
[2020-06-15 09:32] LABS: 25 Hydroxy Vitamin D 46 ng/mL (30-100); Alanine Aminotransferase 25 U/L (0-33); Alkaline Phosphatase 120 IU/L (35-105); Anion Gap 12.6 (5-19); Aspartate Amino Transferase 27 U/L (0-32); Blood Urea Nitrogen 14 mg/dL (8-23); Calcium 9.5 mg/dL (8.5-10.5); Carbon Dioxide 28 mmol/L (22-29); Chloride 105 mmol/L (98-107); Globulin 2.7 g/dL (1.3-4.6); Glucose 108 mg/dL (65-115); Osmolality Calculated 293 mOsm/kg (285-295); Potassium 4.6 mmol/L (3.5-5.1); Sodium 141 mmol/L (136-145); Total Bilirubin 0.3 mg/dL (0.15-1.2); Total Protein 6.7 g/dL (6.6-8.7)
[2020-06-15 09:49] LABS: Chol HDL Ratio 2.54 mg/dL (0.0-4.40); Cholesterol 173 mg/dL (0-200); HDL Cholesterol 68 mg/dL (60-100); LDL Cholesterol Calculated 91 mg/dL (50-129); LDL HDL Ratio 1.34 RATIO (0.00-3.22); Triglycerides 71 mg/dL (0-150)
--- NOTE | 2020-06-15 20:07 | ONC FU_ITS ---
Dr. Caro Patient Follow-Up Note Patient: Jazmin Epperson Unit #: [id number]: 1950 Dicatated By: Itz Caro M.D.Date of Visit:Jun 15, 2020 Onc Med Follow-up/Prog Note Chief Complaint: Breast cancer. History of Present Illness: This is a 69 year-old woman with grade I infiltrating ductal carcinoma of the right breast, stage IA (T1c, N0, M0), ER/OH positive and HER-2/aranza negative. She had palpated a right breast nodule about 4 years ago, with mammogram at that time being benign. Follow up mammogram and ultrasound on 10/19/2014 showed spiculated 1.6 cm mass in the right breast, located at 10:00 position approximately 4 cm from the nipple on the ultrasound. There was also a subcentimeter mass in the left breast at 12:00 position suggestive of complex cyst on ultrasound. Ultrasound-guided biopsy on 11/05/2014 of the right breast lesion was nondiagnostic. On 11/23/2014 she was taken to OR for right breast lumpectomy and right axillary sentinel lymph node biopsy by Dr. Talbert. Her surgical pathology showed a 1.7 cm infiltrating ductal carcinoma, grade 1, negative final margins. Lymphovascular invasion was identified. One sentinel lymph node biopsy was negative for metastatic disease. Prognostic profile was in ER 92%, OH 93%, HER-2 by FISH 1.1, by IHC 1+. The patient was first seen by Dr. Mar on 12/07/2014. Oncotype DX score returned at 7, corresponding to 5% risk of distant recurrence in the next 10 years after completion of adjuvant hormonal treatment. She completed adjuvant radiation to the right breast on 02/19/2015 to a total dose of 5856 cGy. She began adjuvant hormonal therapy with anastrozole in November 2014. DEXA scan on 12/11/2014 showed osteoporosis, T score -2.5 in proximal femur. She also was found to have Vitamin D insufficiency. On 11/03/2015 she sustained a right wrist fracture after falling while attempting to get out of the bathtub. She did not require surgery. I had seen in her for a followup vist in December 2015. She was otherwise not having any joint or bone pain, but she was complaining of significant fatigue. She had stopped taking Fosamax because she was having difficulty swallowing. At that time I did have her start Prolia for the osteoporosis, and she continued adjuvant hormonal therapy with anastrozole. Subsequent to that visit she developed a skin eruption on the lower extremities. A skin biopsy in May 2016 showed lichenoid tissue reaction with eosinophils, consistent with lichenoid drug eruption. Ultimately it was felt to be due to the anastrozole, and it did improve when she stopped the medication. She then started further adjuvant hormonal therapy with exemestane 25 mg daily in October 2016. A repeat DEXA scan on 11/26/2017 still showed evidence of osteoporosis with T score -1.2 in the lumbar spine, -2.5 in the left hip, and -2.1 in the right hip. She continued Prolia for bone health, and she continued adjuvant hormonal therapy with exemestane 25 mg daily. In December 2019 she had presented to the emergency room with abdominal pain having undergone colonoscopy with removal of a cecal polyp the day before. Her CT showed ruptured spleen, and she subsequently was admitted to [facility] where she underwent open splenectomy. She had an uneventful recovery. She is seen for a follow-up visit. She has been feeling pretty good generally. She has good energy and activity tolerance. ECOG score is 0. She has good appetite. She has not had fever or night sweats, but she occasionally wakes up feeling hot. She has no shortness of breath, cough, or chest pain. She has no GI or complaints. She says her right hip has started to bother her. She has no other joint or bone pain. She does not complain of headache or dizziness. She has occasional episodes when she feels a gamez and then gets lightheaded. She has no focal neurologic symptoms. Medications: Atorvastatin Calcium 1 (40 mg) Tablet Oral at bedtime, Cholecalciferol 1 Tablet (of 1000 Units) Oral daily, Exemestane 1 (25 mg) Tablet Oral daily, Synthroid 1 (50 mcg) Tablet Oral daily, Triamcinolone Acetonide Cream Topical PRN Allergies: Codeine Sulfate, doxycycline , eggs, and Penicillin. Vital Signs: Weight is 143 pounds. Blood pressure 139/86, pulse 96, respirations 17, temp 98.2 degrees, oxygen saturation 98%. Physical Examination: Constitutional - She looks good generally, Eyes - Sclerae nonicteric. Conjunctivae clear, ENMT - No lesions noted in the oral cavity, Hematologic/Lymphatic - No cervical or clavicular adenopathy, Respiratory - Lungs are clear with good air movement bilaterally, Cardiovascular - Heart rhythm is regular. There is no murmur, gallop, or rub noted, Breasts - There are no breast masses noted. There is no axillary adenopathy, Abdomen - Soft. Liver and spleen are not enlarged. There is no abdominal mass or ascites noted and there is no inguinal adenopathy, Extremities - No edema. Pedal pulses are palpable bilaterally, Neurologic - No focal neurologic deficits noted. Lab/Imaging: Test performed on Jun 15, 2020 08:15 Cholesterol, Total 173 mg/dL Sodium 141 mmol/L Vitamin D (25-Hydroxy), Total 46 ng/mL Potassium 4.6 mmol/L Triglycerides 71 mg/dL Chloride 105 mmol/L LDL Cholesterol 91 mg/dL CO2 28 mmol/L Anion Gap 12.6 HDL Cholesterol 68 mg/dL BUN 14 mg/dL Cholesterol/HDL Ratio 2.54 mg/dL Creatinine 0.7 mg/dL LDL / HDL Ratio 1.34 RATIO Cr Clearance (Est) 79.3900 mL/min Glucose 108 mg/dL Osmolality - Calculated 293 mOsm/kg Calcium 9.5 mg/dL Protein, Total 6.7 g/dL Albumin 4.0 g/dL Globulin 2.7 g/dL Bilirubin, Total 0.3 mg/dL ALT (SGPT) 25 U/L AST (SGOT) 27 U/L Alkaline Phosphatase 120 IU/L WBC 7.3 10 3/uL RBC 4.90 10 6/uL HGB 13.8 g/dL HCT 42.8 % MCV 87.3 fL MCH 28.2 pg MCHC 32.2 g/dL RDW 17.0 % Platelet Count 354 10 3/cmm MPV 10.7 fL Neutrophils 4.80 10 3/uL Lymphocytes 1.3 10 3/uL Monocytes 0.8 10 3/uL Eosinophils 0.4 10 3/uL Basophils 0.1 10 3/uL Neutrophil % 65.9 % Lymphocyte % 17.3 % Monocyte % 10.3 % Eosinophil % 5.4 % Basophils % 0.8 % NRBC % 0 % Problem List: 1. Grade I infiltrating ductal carcinoma of the right breast, stage IA (T1c, N0, M0), ER/OH positive, HER-2 negative. She was low risk by Oncotype DX, recurrence score 7. As such, adjuvant chemotherapy was not recommended. 2. She underwent right breast lumpectomy and sentinel lymph node biopsy on 11/23/2014. She completed adjuvant radiation to the right breast on 02/19/2015 to a total dose of 5856 cGy. 3. She started adjuvant hormonal therapy with anastrozole in November 2014. 4. She had evidence of osteoporosis on a baseline bone density study, T score -2.5 in the proximal femur. She also had evidence of vitamin D deficiency. Problems Addressed with this Encounter and Plan: 1. Grade I infiltrating ductal carcinoma of the right breast, stage IA (T1c, N0, M0), ER/OH positive, HER-2 negative. She was low risk by Oncotype DX, recurrence score 7. As such, adjuvant chemotherapy was not recommended. Her treatment included right breast lumpectomy and sentinel lymph node biopsy on 11/23/2014 followed by adjuvant radiation to the right breast, completed on 02/19/2015 to a total dose of 5856 cGy. She began adjuvant hormonal therapy with anastrozole in November 2014. It was stopped in May 2016 after she developed a lichenoid skin eruption. She then began further adjuvant hormonal therapy with exemestane 25 mg daily in October 2016. During followup she has tolerated the exemestane well, and thus far there has been no evidence of recurrence of the breast cancer. She will now stop treatment, as she had low risk disease and she has now completed 5 years of adjuvant hormonal therapy. She will continue her regular follow-up with Dr. Guevara. She is aware that she does need to continue her yearly surveillance mammograms. I will see her here again only as needed. 2. She had evidence of osteoporosis on her baseline bone density with T score -2.5 in the proximal femur. She also had evidence of vitamin D deficiency. She has continued treatment with Prolia and vitamin D supplementation. As of November 2017 her repeat DEXA scan still showed osteoporosis with T score -2.5 in the left hip and -2.1 in the right hip. She is now completing her adjuvant hormonal therapy, I will repeat her DEXA scan. She will have further treatment for the osteoporosis based on those results. Signed By: Itz Caro M.D. <<Signature on File>>
== END 2020-06-15 07:46 | disposition home or self-care (01) ==
PROVIDERS: PCP Family Medicine; Visit Provider Internal Medicine Medical Oncology
DX: Z08 Encounter for follow-up examination after completed treatment for malignant neoplasm (principal); Z85.3 Personal history of malignant neoplasm of breast; M81.0 Age-related osteoporosis without current pathological fracture; Z79.811 Long term (current) use of aromatase inhibitors; Z92.3 Personal history of irradiation
CPT/HCPCS: 36415; 77066; 80053; 80061; 82306; 85025; 99214

== ENCOUNTER 2020-07-05 15:19 | Outpatient (CLI) | payer MEDICARE, SELFPAY ==
--- NOTE | 2020-07-05 15:54 | XR_ITS ---
WS: [id number] DEXA (DUAL ENERGY X-RAY ABSORPTIOMETRY) Bone mineral density was performed using a [employer] machine. HISTORY: OSTEOPOROSIS, OSTEOPENIA, BREAST CANCER, AROMATASE INHIBITOR COMPARISON: 11/26/2017 Lumbar spine BMD (L1-L4): 1.037 g/cm2 T score: -1.2 Z score: 0.6 Total hip BMD: Left: 0.704 g/cm2. T score: -2.4 Z score: -0.8 Right: 0.748 g/cm2. T score: -2.1 Z score: -0.5 10 year probability of a major osteoporotic fracture is 25%. Compared to the prior study from 11/26/2017. Lumbar spine bone mineral density has increased by 0.4%. Bilateral hips bone mineral density has increased by 0.4%. XR/XR DEXA axial skeleton* [id number] IMPRESSION: OSTEOPENIA based upon the WHO classification for females. No significant change in bone mineral density since the prior study.
== END 2020-07-05 15:20 | disposition home or self-care (01) ==
PROVIDERS: PCP Family Medicine; Visit Provider Internal Medicine Medical Oncology
DX: M81.0 Age-related osteoporosis without current pathological fracture (principal); M85.88 Other specified disorders of bone density and structure, other site
CPT/HCPCS: 77080

== ENCOUNTER 2020-11-10 12:38 | Outpatient (CLI) | payer MEDICARE, SELFPAY ==
--- NOTE | 2020-11-10 12:56 | MR_ITS ---
WS: [id number] MRI LUMBAR SPINE NONCONTRAST TECHNIQUE: Sagittal T1, T2 and STIR imaging. Axial T1 and T2 imaging. CLINICAL INFORMATION: LUMBOSACRAL RADICULOPATHY L5 COMPARISON: None. FINDINGS: Mild lumbar curve. No acute compression. No high-grade central canal stenosis. Grade 1 anterolisthesi s L4 on L5. Mild compression superior endplate L2. Mild compression of the inferior endplate L3 and L 4 with endplate Schmorl's node. Associated edema at these levels consistent with recent acute anderson srinath. Loss of approximately 25% vertebral body height at L2. No significant retropulsion. Compression fractures are new since the prior CT abdomen pelvis January 09, 2020. L1-L2: Mild bulging. Mild facet arthropathy. Spinal canal and foramen are patent. L2-L3: Mild disc bulging with narrowing of the subarticular recess bilaterally. Mild facet arthropath y. Spinal canal is patent. Mild right foraminal narrowing. L3-L4: Slight anterolisthesis L3 on L4. Impingement on the right subarticular recess and traversing r ight L4 nerve root. Mild central canal stenosis. Mild right and no significant left foraminal narrowi ng. Moderate facet arthropathy. L4-L5: Grade 1 anterolisthesis. Moderate central canal stenosis with impingement on the traversing le ft L5 nerve root. Moderate facet arthropathy. Mild left and no significant right foraminal narrowing. Ligament flavum hypertrophy. L5-S1: Mild annular bulging. Spinal canal and foramen are patent. Small left renal cyst. Anterior wedging with compression mid thoracic spine measuring T8 with loss of approximately 40% john tebral body height anteriorly. This is age indeterminant and could be further evaluated with MRI if i ndicated. MR/MR lumbar spine wo con* [id number] IMPRESSION: 1. Mild lumbar curve. Acute compression superior endplate L2, inferior endplat e L3, and inferior endplate L4 with edema. 2. Compression worse at L2 superior endplate with loss of approximately 25% ve rtebral body height. No retropulsion. 3. Additional anterior wedging with compression in the mid thoracic spine at T 8 with loss of approximately 40% vertebral body height anteriorly. No retropuls ion. This may be chronic but age indeterminant on this study. This can be furth er evaluated with MRI if indicated. 4. Small right subarticular protrusion L3-4 impinges the traversing right L4 n erve root. 5. Moderate central canal stenosis L4-5 with impingement of the traversing lef t L5 nerve root. 6. Moderate to advanced facet arthropathy L4-5.
== END 2020-11-10 12:39 | disposition home or self-care (01) ==
LOC: RADSHAW 12:41
PROVIDERS: PCP Family Medicine; Visit Provider Family Medicine
DX: M54.17 Radiculopathy, lumbosacral region (principal); M47.816 Spondylosis without myelopathy or radiculopathy, lumbar region; M48.061 Spinal stenosis, lumbar region without neurogenic claudication; M51.26 Other intervertebral disc displacement, lumbar region; R60.0 Localized edema; S32.029A Unspecified fracture of second lumbar vertebra, initial encounter for closed fracture; S32.039A Unspecified fracture of third lumbar vertebra, initial encounter for closed fracture; S32.049A Unspecified fracture of fourth lumbar vertebra, initial encounter for closed fracture; X58.XXXA Exposure to other specified factors, initial encounter
CPT/HCPCS: 72148

== ENCOUNTER 2020-11-17 06:35 | Outpatient (CLI) | payer MEDICARE, SELFPAY | END 2020-11-17 06:36 | disposition home or self-care (01) | LOC: ONCMED 06:42 | PROVIDERS: PCP Family Medicine; Visit Provider Internal Medicine Medical Oncology | DX: M81.0 Age-related osteoporosis without current pathological fracture (principal) | CPT/HCPCS: 96372 ==

== ENCOUNTER 2020-12-06 09:05 | Outpatient (CLI) | payer MEDICARE, SELFPAY ==
--- NOTE | 2020-12-06 10:00 | NM_ITS ---
WS: [id number] NUCLEAR MEDICINE HIDA SCAN CLINICAL INFORMATION: K82.1 - Hydrops of gallbladder TECHNIQUE: Following intravenous administration of mCi of technetium 99m mebrofenin, images of the ab domen were obtained over the course of 60 minutes. Next, gallbladder ejection fraction was determined by obtaining preprandial and one-hour postprandial images of the gallbladder following oral ingestio n of Ensure. COMPARISON: None. FINDINGS: Normal hepatic uptake at 5 minutes. Normal common bile duct. Normal hepatic excretion. Gallbladder is visualized by 15 minutes. No evidence of acute cholecystitis. Normal small bowel activity. Gallbladder ejection fraction 27% suspicious for gallbladder dysfunction and chronic cholecystitis. NM/NM hepatobiliary w phar* [id number] IMPRESSION: Gallbladder ejection fraction 27% suspicious for gallbladder dysfunction and ch ronic cholecystitis.
== END 2020-12-06 09:06 | disposition home or self-care (01) ==
PROVIDERS: PCP Family Medicine; Visit Provider Surgery
DX: K82.1 Hydrops of gallbladder (principal)
CPT/HCPCS: 78227; A9537

== ENCOUNTER → 2020-12-16 08:19 | Outpatient (BNVA) | payer MEDICARE, SELFPAY | PROVIDERS: PCP Family Medicine; Visit Provider Surgery | DX: K82.1 Hydrops of gallbladder (principal) | CPT/HCPCS: 87635 ==

== ENCOUNTER 2020-12-21 06:44 | Day surgery (SDC) | payer MEDICARE, SELFPAY ==
[2020-12-20 14:56] VITALS: BMI 25.0
[2020-12-21] VITALS (7 sets, daily range): BP systolic 138–159; BP diastolic 86–102; PULSE 69–92; RESP 16–22; TEMP 35.7–36.3; O2SAT 94–97
[2020-12-21] MEDS: acetaminophen 1,000 MG/100 ML PIGGYBACK 400 MG IV (07:10)
[2020-12-21] MEDS: sodium chloride 0.9% 1,000 ML 30 ML IV (07:10)
--- NOTE | 2020-12-21 08:16 | W.PM.OPSUD ---
Surgery/Procedure H&P Update DATE OF PROCEDURE: December 21, 2020 DATE H&P PERFORMED: 12/09/20 H&P UPDATE INFORMATION: I have reviewed H&P completed within last 30 days, I have examined patient prior to procedure and No changes to prior documentation PREOP DIAGNOSIS: Chronic cholecystitis PRIMARY INDICATION FOR PROCEDURE: The same PLANNED PROCEDURE: Operation Date: 12/21/20 08:20 Proposed Procedures p Laparoscopic Cholecystectomy 15453 K82.1(Not Applicable) - Shan Prabhakar MD
[2020-12-21] MEDS: clindamycin 600 MG/50 ML PREMIX 100 MG IV (08:48)
--- NOTE | 2020-12-21 08:50 | ANES.PREANE2 ---
Pre-Anesthetic Assessment Pre-Anesthetic Assessment: Height/Weight: Height 1.6 m Weight 63.957 kg Temp Pulse Resp BP Pulse Ox 97.2 F L 79 18 138/86 97 12/21/20 07:07 12/21/20 07:07 12/21/20 07:07 12/21/20 07:07 12/21/20 07:07 Preop Diagnosis: Chronic cholecystitis Proposed Procedure: Operation Date: 12/21/20 08:20 Proposed Procedures p Laparoscopic Cholecystectomy 04679 K82.1(Not Applicable) - Shan Prabhakar MD Was Beta Rocky taken within 24 hours: N/A Was Clonidine taken within 24 hours: N/A Last intake: Intake Last Liquid Date 12/20/20 Last Liquid Time 17:30 Last Solid Date 12/20/20 Last Solid Time 17:30 Social: Social History: No alcohol and No tobacco Exam: Pre-Anes Outpt Exam: alert, oriented x 3, clear to auscultation bilaterally and regular rate & rhythm Airway: Submandibular: WNL Cervical ROM: WNL MP: 2 Dentition: Full Metabolic: Metabolic: Hyperlipidemia and Thyroid Anesthetic Plan: ASA status: 2 Anesthesia: General Risk of > 500 ml blood loss (7ml/kg in children): No Meds/Allergies Current Medications: Current Medications Generic Name Dose Route Start Last Admin Trade Name Freq PRN Reason Stop Dose Admin Sodium Chloride 1,000 mls @ 30 ml s/hr 12/21/20 07:00 12/21/20 07:10 Sodium Chloride 0.9% IV 12/22/20 06:59 30 mls/hr .Q24H CAMRON Administration PFSH Anesthesia PFSH: Family History Sister Cancer Family/Other Cancer Denies family history of Anesthesia complication Bleeding disorder Data Anesthesia Cardiac Studies: No Data to Display
[2020-12-21] MEDS: lidocaine 2% INJ 20 mL INJECTION (09:15)
--- NOTE | 2020-12-21 10:04 | PM.OP ---
Operative Report Date of procedure: December 21, 2020 Pre-op Diagnosis: Chronic cholecystitis Post-op diagnosis: same Post-op Findings: Intra-abdominal adhesions particularly towards the midline Procedure Done: Laparoscopic cholecystectomy Implants: Placement of pieces of Surgicel and FloSeal at the gallbladder fossa Specimens removed/disposition: Gallbladder and contents Surgeon: Shan Prabhakar Family Services Assistant: Surgical beau Lockhart Circulating nurse Dayan Anesthesia: General Estimated blood loss (mL): 15 Condition: stable Disposition: same day Brief History: Symptomatic gallbladder disease Procedure: Patient was identified in the holding area and taken back to the operative suite, placed in supine position intubated by anesthesia . Time-out was done verifying the patient's name/date of /planned procedure and destination after the procedure, all were in agreement. SCDs confirmed to be functioning, preoperative antibiotics administered per protocol, and beta claribel protocol was confirmed. Patient was appropriately secured to the table, footboard was applied to the OR table, before prep and drape anesthesia was asked to tilt the table back and forth to make sure that the patient is appropriately secured and she was. Prep and drape of the abdomen was done under the usual sterile technique, started by right upper quadrant 5 mm Optiview after skin cut with a 0 degree 5 mm scope. Safe entrance to the abdominal cavity followed by gas insufflation, noticed that the patient has no injuries or bleeding and there was extensive midline intra-abdominal adhesions from the previous laparotomy, at the umbilicus level and just 1 inch to the right side and under direct visualization Avalos trocar was inserted and now cameras were switched to 10 mm 30 degree scope and under direct visualization 5 millimeter trocar was inserted in the epigastric region followed by additional far lateral 5 mm trocar was inserted in the right upper quadrant that was done after injection of local lidocaine 2% at all incision sites. Gallbladder showed chronic cholecystitis with adhesions. Patient was then positioned in the head up and tilted to the left Ratcheted forceps were introduced into the lateral most 5mm port and was applied unto the fundus of the gallbladder cephalad and using Bullet forceps the infundibulum of the gallbladder was retracted laterally. Using [place] forceps then L-hook cautery to dissect the peritoneum overlying the Calot's triangle which was then opened medially and laterally until the cystic duct and the cystic artery were skeletonized. Dissection was carried along the body of the gallbladder and after ensuring critical view of safety was identfied. Cystic duct and cystic artery where seen connected to the gallbladder. Clips were applied on the cystic duct towards the common bile duct 1 towards the gallbladder then divided is in sharp scissors, 2 clips were then applied onto the cystic artery and 1 towards the gallbladder and divided by sharp scissors. Dissection was then carried along of the gallbladder from the gallbladder fossa using cautery as well as sharp dissection with heat energy. The gallbladder then was dissected out from the gallbladder fossa totally , cholecystectomy was then achieved and was placed in an Endo Catch bag and then retrieved from the Avalos trocar site under direct visualization using a 5 mm 30? scope through the epigastric trocar, specimen was then passed to the circulating nurse to go for permanent pathology,irrigation and hemostasis was done to the gallbladder fossa after hemostasis was secured yet there was some oozing so 5 mm clips were applied followed by Bovie cauterization and application of FloSeal and pieces of Surgicel. Now hemostasis was completely secured., final survey laparoscopy was done that showed no injuries. Suction irrigation was obtained The paraumbilical fascial defect was then closed using interrupted #1 PDS sutures using a fascial closure device ;Jovanny Barbour under direct visualization Gas was allowed to deflate,Trocars were then taken out under direct vision there was no evidence of bleeding Specimen was passed to the circulating nurse for permanent pathology. No drains were placed and the paraumbilical incision as well as all trocar sites were closed by 3-0 Vicryl by 4-0 Monocryl to approximate the skin edges of the paraumbilical incision, dressing was applied in the form of Dermabond and the patient patient got extubated and was taken to recovery area in a stable condition. Count of sponges, needles and instruments were completed at the end of the procedure I was present for the whole entire procedure.
--- NOTE | 2020-12-21 10:21 | SUR.PHASEI ---
PT AWAKES TO VOICE , VERBALLY DENIES PAIN AND NAUSEA ABD IS SOFT WITH 4 SITES D/I WITH DERMABOND, PT SKIN COOL CLAMMY, PT NODS YES TO (DO YOU GET SWEATY EASY). FAN TO PT FOR COMFORT PT ON RA FOR COMFORT. GOOD RESP EFFORT NOTED.
[2020-12-21] MEDS: HYDROcodone-acetaminophen 5-325 mg Tablet 1 TAB PO (11:40)
--- NOTE | 2020-12-21 16:05 | ANE.PACU2 ---
Inpatient post-anesthesia follow up: Airway intact: Yes Vital signs: Temperature 96.2 F Pulse Rate 69 Respiratory Rate 16 Blood Pressure 159/87 Pulse Oximetry 94 Oxygen Delivery Me thod Room Air Oxygen Flow Rate 8 Fraction of Inspir ed Oxygen Hydration adequate: Yes Nausea and vomiting: No Pain level: 2
== END 2020-12-21 12:47 | disposition home or self-care (01) ==
PROVIDERS: PCP Family Medicine; Visit Provider Surgery
PROC: 0FT44ZZ Resection of Gallbladder, Percutaneous Endoscopic Approach (ICD-10-PCS; CPT 47562; principal; 2020-12-21 08:10)
DX: K81.1 Chronic cholecystitis (principal); E78.5 Hyperlipidemia, unspecified
CPT/HCPCS: 47562; 88304; 96365; J1100; J2370; J2405; J2704; J2710; J3010; J3490; J7030

== ENCOUNTER 2020-12-30 14:51 | Outpatient (CLI) | payer MEDICARE, SELFPAY ==
--- NOTE | 2020-12-30 14:57 | XR_ITS ---
WS: [id number] SCOLIOSIS TECHNIQUE: 4 views of the thoracolumbar spine, standing AP and lateral view(s) CLINICAL INFORMATION: RADICULOPATHY, LUMBOSACRAL REGION, DORSALGIA COMPARISON: None. FINDINGS: Osteopenia. Mild S-shaped thoracolumbar curve. Thoracic curve convex left in the lower thoracic spine measuring 16 degrees. Lumbar curve convex right measuring 9 degrees Cholecystectomy clips. Grade 1 anterolisthesis L4 on L5 measuring 5 mm. Disc space narrowing worse L4 -L5 and L5-S1. Chronic compression of the L2 superior endplate, L3 inferior endplate, and L4 inferior endplate unchanged since the recent MRI. Chronic appearing anterior wedging in the mid thoracic spin e. Moderate thoracic kyphosis. XR/XR scoliosis survey 4-5V [id number] IMPRESSION: 1. Osteopenia. Mild S-shaped thoracolumbar curve. 2. Thoracic curve convex left in the lower thoracic spine measuring 16 degrees . 3. Lumbar curve convex right measuring 9 degrees
--- NOTE | 2020-12-30 14:57 | XR_ITS ---
WS: [id number] LUMBAR SPINE FLEXION AND EXTENSION TECHNIQUE: 3 views of the lumbar spine: Lateral neutral, flexion, and extension views. CLINICAL INFORMATION: RADICULOPATHY, LUMBOSACRAL REGION, DORSALGIA COMPARISON: MRI November 10, 2020 FINDINGS: Osteopenia. Disc space narrowing worse at L4-L5 and L5-S1. Grade 1 anterolisthesis L4 on L5 measuring 5 mm. No significant instability on flexion-extension. Moderate facet arthropathy L4-5. Stable compr ession superior endplate L2. Stable mild compression inferior endplates L3 and L4. Mild chronic anter ior wedging in the lower thoracic spine. Retroperitoneal surgical clips. XR/XR lumbar spine f/e only [id number] IMPRESSION: 1. Osteopenia. 2. 5 mm anterolisthesis L4 on L5. No significant instability on flexion-extens ion. 3. Disc space narrowing worse L4-L5 and L5-S1. 4. Moderate facet arthropathy L4-5. 5. Stable appearing compression superior endplate L2 unchanged since the recen t MRI. 6. Stable mild compression involving the inferior endplates L3 and L4 unchange d since the recent MRI.
== END 2020-12-30 14:52 | disposition home or self-care (01) ==
PROVIDERS: PCP Family Medicine; Visit Provider Neurological Surgery
DX: M54.17 Radiculopathy, lumbosacral region (principal); M54.5 Low back pain; M85.88 Other specified disorders of bone density and structure, other site; M47.816 Spondylosis without myelopathy or radiculopathy, lumbar region
CPT/HCPCS: 72083; 72120

== ENCOUNTER 2021-03-07 08:00 | Outpatient (CLI) | payer MEDICARE, SELFPAY ==
--- NOTE | 2021-03-07 08:27 | XR_ITS ---
WS: [id number] LUMBAR SPINE TECHNIQUE: 5 views of the lumbar spine CLINICAL INFORMATION: RADICULOPATHY LUMBOSACRAL REGION, DORSALGIA COMPARISON: December 30, 2020 FINDINGS: Five [id number] lumbar vertebral bodies. Mild lumbar curve. Cholecystectomy clips. Pelvic phlebo liths. Osteopenia. Grade 1 anterolisthesis L4 on L5 measuring 6.5 mm in neutral position. This increa ses to 7.7 mm in flexion and 8 mm in extension. Compression with anterior wedging L2 vertebral body. This is stable compared to December 30, 2020. Vascular calcification. Facet arthropathy L4-L5 and L5-S1 . XR/XR lumbar spine min 4V [id number] IMPRESSION: 1. Stable compression fracture L2. 2. Stable anterolisthesis L4 on L5 with mild instability.
--- NOTE | 2021-03-07 08:45 | MR_ITS ---
WS: [id number] MRI THORACIC SPINE WITHOUT CONTRAST TECHNIQUE: Sagittal T1, T2 and STIR imaging. Axial T2 imaging. Noncontrast imaging obtained. CLINICAL INFORMATION: BACK PAIN, LUMBOSACRAL RADICULOPATHY, COMPRESSION FX OF SPIN COMPARISON: MRI lumbar November 10, 2020 FINDINGS: Mild thoracic curve. Mild thoracic kyphosis. No acute compression fractures. Chronic compression with anterior wedging at T8. Endplate Schmorl's nodes in the lower thoracic spine. Disc space narrowing T 11-T12 endplate degenerative changes. A few tiny central protrusions worse at T6-T7. No significant c entral canal stenosis. Cord signal is normal. Mild chronic appearing compression superior endplate at L2. This is unchanged since the prior lumbar spine MRI. Normal caliber thoracic aorta. Left renal cysts. Partially visualized small hepatic cysts. Mild central canal stenosis in the cervical spine turbine inspector imaging at C4-C6. MR/MR thoracic spin wo con* [id number] IMPRESSION: 1. Mild thoracic curve. Mild thoracic kyphosis. No acute appearing compression fractures. 2. Chronic anterior wedging at T8 with mild compression. No edema. This corres ponds to the prior lumbar spine MRI. 3. Small central protrusion T6-T7. No significant central canal stenosis. 4. Moderate facet arthropathy lower thoracic spine. 5. Stable compression superior endplate L2.
== END 2021-03-07 08:01 | disposition home or self-care (01) ==
PROVIDERS: PCP Family Medicine; Visit Provider Neurological Surgery
DX: M54.17 Radiculopathy, lumbosacral region (principal); M53.2X6 Spinal instabilities, lumbar region; M48.56XA Collapsed vertebra, not elsewhere classified, lumbar region, initial encounter for fracture; M51.24 Other intervertebral disc displacement, thoracic region
CPT/HCPCS: 72110; 72146

== ENCOUNTER → 2021-04-25 11:10 | Outpatient (BNVA) | payer MEDICARE, SELFPAY | PROVIDERS: PCP Family Medicine; Visit Provider Family Medicine | DX: E03.9 Hypothyroidism, unspecified (principal); M85.80 Other specified disorders of bone density and structure, unspecified site; Z76.89 Persons encountering health services in other specified circumstances; Z90.81 Acquired absence of spleen; Z23 Encounter for immunization | CPT/HCPCS: 80053; 80061; 84443; 85025 ==